=== PATIENT | male | born 1960 | race Caucasian/White ===

== ENCOUNTER → 2017-02-06 | Outpatient (CLI) | payer BC ==
[2017-02-06 08:57] LABS: CHLORIDE,CL 106 mmol/L (98-110); SODIUM,NA 139 mmol/L (136-146)
== END ==
LOC: MW.CHFP 08:04
PROVIDERS: ATTEND Student in an Organized Health Care Education/Training Program
DX: I10 Essential (primary) hypertension (principal); E78.1 Pure hyperglyceridemia; R73.9 Hyperglycemia, unspecified
CPT/HCPCS: 36415; 80053; 80061; 83036

== ENCOUNTER 2018-12-02 02:28 | Emergency (ER) | payer SELFPAY ==
--- NOTE | 2018-12-02 02:47 | EDM.PDOC ---
ED HPI GENERAL MEDICAL PROBLEM - General Chief Complaint: Skin Complaint Stated Complaint: INFECTION OF LEFT SIDE OF FACE Time Seen by Provider: 12/02/18 02:46 Source of Information: Reports: Patient - History of Present Illness INITIAL COMMENTS - FREE TEXT/NARRATIVE: HISTORY AND PHYSICAL: History of present illness: [Patient has an area of induration and abscess approximately 3 inches long and 2 inches wide consistent with a parotid abscess, eating by another provider provided Bactrim is on day 7 of 10 No fever nausea vomiting chills sweats] Review of systems: As per history of present illness and below otherwise all systems reviewed and negative. Past medical history: As per history of present illness and as reviewed below otherwise noncontributory. Surgical history: As per history of present illness and as reviewed below otherwise noncontributory. Social history: No reported history of drug or alcohol abuse. Family history: As per history of present illness and as reviewed below otherwise noncontributory. Physical exam: HEENT: Atraumatic, normocephalic, pupils reactive, negative for conjunctival pallor or scleral icterus, mucous membranes moist, throat clear, neck supple, nontender, trachea midline. Lungs: Clear to auscultation, breath sounds equal bilaterally, chest nontender. Heart: S1S2, regular, negative for clicks, rubs, or JVD. Abdomen: Soft, nondistended, nontender. Negative for masses or hepatosplenomegaly. Negative for costovertebral tenderness. Pelvis: Stable nontender. Genitourinary: Deferred. Rectal: Deferred. Extremities: Atraumatic, negative for cords or calf pain. Neurovascular unremarkable. Neuro: Awake, alert, oriented. Cranial nerves II through XII unremarkable. Cerebellum unremarkable. Motor and sensory unremarkable throughout. Exam nonfocal. In as per history of present illness otherwise unremarkable Diagnostics: []Wound culture Therapeutics: [] continue Bactrim double strength, I'll provide 5 more days from today giving the patient a total of another 10 days of Bactrim Invanz 1 g IM Area was cleansed and prepped Half-inch Incision Abscesses drained culture obtained flushed with normal saline Packed iodoform Return in 48 hours for recheck and repacking Impression: [] left parotid abscess Post I&D Definitive disposition and diagnosis as appropriate pending reevaluation and review of above. Left Face Pain Score (Numeric/FACES): 3 - Related Data Allergies Allergy/AdvReac Type Severity Reaction Status Date / Time albuterol [From Ventolin HFA] Allergy Shortness Verified 12/13/16 11:32 of Breath Home Meds: Home Meds Losartan Potassium [Cozaar] 100 mg DAILY 12/02/18 [History] amLODIPine Besylate [Amlodipine Besylate] 5 mg PO DAILY 12/02/18 [History] atorvaSTATin [Lipitor] 40 mg PO BEDTIME 12/02/18 [History] ED ROS GENERAL - Review of Systems Review Of Systems: See Below ED EXAM, SKIN/RASH Exam: See Below Course - Vital Signs Last Recorded V/S: Last Vital Signs Temp 96 F 12/02/18 02:45 Pulse 102 H 12/02/18 02:45 Resp 18 12/02/18 02:45 BP 102/72 12/02/18 02:45 Pulse Ox 94 L 12/02/18 02:45 - Orders/Labs/Meds Orders: Active Orders 24 hr Category Date Time Status Ertapenem [INVanz] Med 12/02/18 03:22 Stat 1 gm IM NOW STA Meds: Medications Discontinued Medications Generic Name Dose Route Start Last Admin Trade Name Freq PRN Reason Stop Dose Admin Lidocaine HCl Confirm 12/02/18 02:57 12/02/18 03:03 Xylocaine-Mpf 1% Administered 12/02/18 02:58 Not Given Dose 10 mls @ as directed .ROUTE .STK-MED ONE Lidocaine HCl 10 ml 12/02/18 02:56 12/02/18 03:04 Xylocaine 1% INJECT 12/02/18 02:57 Not Given ONETIME ONE Lidocaine HCl 10 ml 12/02/18 03:03 12/02/18 03:03 Xylocaine-Mpf 1% INJECT 12/02/18 03:04 10 ml ONETIME ONE Administration Departure - Departure Time of Disposition: 03:24 Disposition: Home, Self-Care 01 Condition: Good Clinical Impression: Abscess - Discharge Information Referrals: Edmundo Browne MD [Primary Care Provider] - Forms: ED Department Discharge Additional Instructions: Medication as prescribed Return if symptoms persist or worsen Return in 48 hours for recheck sooner as needed Follow-up with primary care in the interim if available [facility] [address] [place] [id number] The following information is given to patients seen in the emergency department who are being discharged to home. This information is to outline your options for follow-up care. We provide all patients seen in our emergency department with a follow-up referral. The need for follow-up, as well as the timing and circumstances, are variable depending upon the specifics of your emergency department visit. If you don't have a primary care physician on staff, we will provide you with a referral. We always advise you to contact your personal physician following an emergency department visit to inform them of the circumstance of the visit and for follow-up with them and/or the need for any referrals to a consulting specialist. The emergency department will also refer you to a specialist when appropriate. This referral assures that you have the opportunity for follow-up care with a specialist. All of these measure are taken in an effort to provide you with optimal care, which includes your follow-up. Under all circumstances we always encourage you to contact your private physician who remains a resource for coordinating your care. When calling for follow-up care, please make the office aware that this follow-up is from your recent emergency room visit. If for any reason you are refused follow-up, please contact the [facility] emergency department at and asked to speak to the emergency department charge nurse. - My Orders Last 24 Hours: My Active Orders 12/02/18 03:22 Ertapenem [INVanz] 1 gm IM NOW STA - Assessment/Plan Last 24 Hours: My Active Orders 12/02/18 03:22 Ertapenem [INVanz] 1 gm IM NOW STA
[2018-12-02] MEDS ORDERED: Lidocaine 1% 10 ML MDV INJECT ONE (02:56)
[2018-12-02] MEDS ORDERED: Ertapenem 1 GM Vial IM STA (03:22)
[2018-12-02] MEDS ORDERED: Ertapenem 1 GM, Lidocaine 1% 3.2 ML IM STA ×2 (03:30)
== END 2018-12-02 03:55 | disposition home or self-care (01) ==
LOC: MW.ED 02:28
DX: K11.3 Abscess of salivary gland (principal); F17.210 Nicotine dependence, cigarettes, uncomplicated; Z79.899 Other long term (current) drug therapy
CPT/HCPCS: 42300; 87070; 96372; 99283; J1335

== ENCOUNTER 2022-02-14 10:25 | Day surgery (SDC) | payer BC ==
[2022-02-14] MEDS ORDERED: Lactated Ringers 1,000 ML IV SCH ×2 (10:30→13:30)
[2022-02-14] MEDS ORDERED: Ondansetron 4 MG/2 ML SDV IVPUSH PRN (11:36)
[2022-02-14] MEDS ORDERED: HYDROmorphone 1 MG/ML Syringe IVPUSH PRN (11:36)
[2022-02-14] MEDS ORDERED: Naloxone 0.4 MG/ML SDV IVPUSH PRN (11:36)
[2022-02-14] MEDS ORDERED: Metoclopramide 10 MG/2 ML SDV IVPUSH PRN (11:36)
[2022-02-14] MEDS ORDERED: Albuterol 0.083% 2.5 MG/3 ML Neb Soln NEB PRN (11:36)
[2022-02-14] MEDS ORDERED: fentaNYL 100 MCG/2 ML SDV IVPUSH PRN (11:36)
[2022-02-14] MEDS ORDERED: Bupivacaine 0.5% 10 ML SDV ONE (12:19)
[2022-02-14] MEDS ORDERED: Propofol 200 MG/20 ML SDV ONE (12:24)
[2022-02-14] MEDS ORDERED: Midazolam 1 MG/ML 2 ML SDV ONE (12:24)
[2022-02-14] MEDS ORDERED: Ondansetron 4 MG/2 ML SDV ONE (12:24)
[2022-02-14] MEDS ORDERED: fentaNYL 100 MCG/2 ML SDV ONE (12:24)
[2022-02-14] MEDS ORDERED: Glycopyrrolate 0.2 MG/ML SDV ONE (12:25)
[2022-02-14] MEDS ORDERED: Acetaminophen/HYDROcodone 325-5 MG Tab PO PRN (13:29)
== END 2022-02-14 14:30 | disposition home or self-care (01) ==
LOC: MW.SDS 10:25
PROVIDERS: ATTEND Surgery
DX: L02.11 Cutaneous abscess of neck (principal); I10 Essential (primary) hypertension; E78.2 Mixed hyperlipidemia; E66.01 Morbid (severe) obesity due to excess calories; Z88.8 Allergy status to other drugs, medicaments and biological substances; Z79.899 Other long term (current) drug therapy; F17.210 Nicotine dependence, cigarettes, uncomplicated; Z68.41 Body mass index [BMI] 40.0-44.9, adult
CPT/HCPCS: 10060; 87070; 87075; 87205; J2250; J2405; J2704; J3010; J3490; J7120; 00300

== ENCOUNTER 2024-06-27 08:07 | Day surgery (SDC) | payer MEDICARE ==
[~2024-06-27 08:07] MED LIST: Albuterol 0.083% 2.5 MG/3 ML Neb Soln NEB PRN; HYDROmorphone 1 MG/ML Syringe IVPUSH PRN; Metoclopramide 10 MG/2 ML SDV IVPUSH PRN; Morphine 2 MG/ML SYRINGE IVPUSH PRN; Naloxone 0.4 MG/ML SDV IVPUSH PRN; Ondansetron 4 MG/2 ML SDV IVPUSH PRN; Sodium Chloride 0.9% 10 ML Syringe FLUSH PRN; Sodium Chloride 0.9% 2.5 ML Syringe FLUSH PRN; Sodium Chloride 0.9% 20 ML SDV IV PRN; ceFAZolin 2 GM in Sodium Chloride 0.9% 50 ML IV ONE; droPERidol 5 MG/2 ML SDV IVPUSH PRN; fentaNYL 50 MCG/ML SDV IVPUSH PRN
[2024-06-27] MEDS: Lactated Ringers 1,000 ML IV SCH (08:55)
[2024-06-27] MEDS ORDERED: Bupivacaine 0.5% 30 ML SDV ONE (09:30)
[2024-06-27] MEDS ORDERED: ceFAZolin 1 GM Vial ONE ×2 (09:30→10:05)
[2024-06-27] MEDS ORDERED: Propofol 200 MG/20 ML SDV ONE ×2 (09:50→09:51)
[2024-06-27] MEDS ORDERED: dexmedeTOMIDine HCl 200 MCG/2 ML SDV ONE (09:50)
[2024-06-27] MEDS ORDERED: fentaNYL 100 MCG/2 ML SDV ONE (09:50)
[2024-06-27] MEDS ORDERED: ceFAZolin 2 GM Vial ONE (10:05)
[2024-06-27] MEDS ORDERED: Ondansetron 4 MG/2 ML SDV ONE (10:11)
[2024-06-27] MEDS ORDERED: Ketorolac 30 MG/ML SDV ONE (10:24)
== END 2024-06-27 11:55 | disposition home or self-care (01) ==
LOC: MW.SDS 08:07
PROVIDERS: ATTEND Surgery
DX: L72.0 Epidermal cyst (principal); E78.00 Pure hypercholesterolemia, unspecified; E66.01 Morbid (severe) obesity due to excess calories; R73.03 Prediabetes; F17.210 Nicotine dependence, cigarettes, uncomplicated; Z88.8 Allergy status to other drugs, medicaments and biological substances; Z79.899 Other long term (current) drug therapy; Z68.41 Body mass index [BMI] 40.0-44.9, adult
CPT/HCPCS: 11423; 87070; 87075; 87205; J0131; J0665; J0690; J1885; J2405; J2704; J3010; J7120; 00300; J3490